=== PATIENT | male | born 2000 | race Two or more races ===

== ENCOUNTER 2023-07-31 17:11 | Emergency (ER) | payer BC, SELFPAY ==
[2023-07-31] VITALS (18 sets, daily range): BP systolic 61–122; BP diastolic 37–77; PULSE 46–87; RESP 18; TEMP 37.4; O2SAT 96–100; BMI 20.9
--- NOTE | 2023-07-31 20:28 | CT_ITS ---
Patient: RALF LOMELI Facility:?[facility] Patient ID:?[id number] Site Patient ID:?[id number]. Site :?[id number] Study:?CT-Head W/O-07/31/2023 10:12:31 PM Ordering Physician:DAVIDE Final Report: INDICATION: Worsening headaches. TECHNIQUE: Non-contrast CT of the head is submitted. No comparisons. FINDINGS: The ventricles, sulci and gyri are of normal size, shape and contour. Midline structures are centrally located. No convincing evidence of intra- or extra- axial fluid collections. IMPRESSION: 1. No radiographic evidence of acute intracranial abnormalities. Please note that all CT scans at this facility use dose modulation, iterative reconstruction, and/or weight-based dosing when appropriate to reduce radiation dose to as low as reasonably achievable. Dictated by Sp Simon MD @ 07/31/2023 10:24:09 PM Signed by:?Sp Simon MD @07/31/2023 10:24:09 PM (Electronic Signature)
[2023-07-31] MEDS: LACTATED RINGERS 1000 ML 1,000 ML IV (21:05)
[2023-07-31] MEDS: METOCLOPRAMIDE HCL 5 MG/ML INJ 10 MG IVP (21:14)
[2023-07-31] MEDS: diphenhydrAMINE 50 MG/ML inj 25 MG IVP (21:14)
--- NOTE | 2023-07-31 21:22 | ED.HA ---
HPI - Headache General Date Seen: 07/31/23 Chief Complaint: Headache/Migraine Stated Complaint: headache Time Seen by Provider: 07/31/23 20:03 Source: patient Mode of arrival: ambulatory Limitations: no limitations History of Present Illness HPI Narrative: Patient is a 22-year-old male presenting to the emergency department for a headache. States the headache started last night and he woke up was feeling worse today. States it hurts worse when he tilts his head side to side and back and forth. Says he feels a little bit off today compared to normal. Does remember hitting his head in the shower a few days ago but no other head injuries. States the headache is on the top of his head it feels like a throbbing sensation. States his headaches usually go away pretty quick but this does not feel like previous headaches. Denies fevers, chills, weakness, numbness, chest pain, shortness of breath, abdominal pain, diarrhea, vision changes. No other concerns noted at this time. Related Data Allergies Allergy/AdvReac Type Severity Reaction Status Date / Time No Known Drug Allergies Allergy Verified 07/31/23 18:33 Review of Systems Status of ROS: Reports: 10 or more systems reviewed and unremarkable except as noted in History and below [facility] Social History Do you use any of these nicotine containing products: Vaping Products Second hand tobacco smoke exposure: Yes How often do you have a drink containing alcohol: never AUDIT-C Alcohol total score: 0 Non-prescribed substance use: denies use Exam Narrative: Exam Narrative: Const: Well-nourished, Well-developed, in mild distress Eyes: PERRL, no conjunctival injection, and symmetrical lids HENT: Atraumatic external nose and ears. Moist mucous membranes. Neck: Symmetric, trachea midline, No thyromegaly. CVS: RRR, No murmurs or gallops. Peripheral pulses 2+ and equal in all extremities RESP: Unlabored respiratory effort. Clear to auscultation bilaterally. GI: Nontender/Nondistended, No rebound or guarding. MSK:Extremities w/o deformity, Normal Active ROM Skin: Warm, Dry. No rashes or lesions. Neuro: Normal Muscle tone, Cranial nerves 2-12 grossly intact, normal [id number], normal [id number], normal gait, normal strength 5/5 upper lower extremities bilaterally, normal sensation upper and lower extremities bilaterally, normal rapid alternating movements. Psych: Awake, Alert, & Oriented x3. Appropriate mood and affect. Const: Vital Signs, click to edit/add: Vital Signs - 24 hr 07/31/23 18:31 07/31/23 19:47 07/31/23 20:00 Temperature 99.3 F Pulse Rate 61 62 Pulse Rate [Right Pulse Oximeter] 87 Respiratory Rate 18 Blood Pressure Blood Pressure [Ri ght Upper Arm] 121/73 Pulse Oximetry 97 98 99 Oxygen Delivery Me thod Room Air 07/31/23 20:01 07/31/23 20:15 07/31/23 20:30 Temperature Pulse Rate 58 L 62 65 Pulse Rate [Right Pulse Oximeter] Respiratory Rate Blood Pressure 111/77 Blood Pressure [Ri ght Upper Arm] Pulse Oximetry 100 99 100 Oxygen Delivery Me thod 07/31/23 20:31 07/31/23 20:45 07/31/23 21:00 Temperature Pulse Rate 57 L 63 52 L Pulse Rate [Right Pulse Oximeter] Respiratory Rate Blood Pressure 122/77 Blood Pressure [Ri ght Upper Arm] Pulse Oximetry 100 100 97 Oxygen Delivery Me thod 07/31/23 21:02 07/31/23 21:07 07/31/23 21:08 Temperature Pulse Rate 46 L 50 L 50 L Pulse Rate [Right Pulse Oximeter] Respiratory Rate Blood Pressure 61/37 L 75/43 L 88/50 L Blood Pressure [Ri ght Upper Arm] Pulse Oximetry 100 98 96 Oxygen Delivery Me thod 07/31/23 21:11 07/31/23 21:14 07/31/23 21:15 Temperature Pulse Rate 56 L 56 L 61 Pulse Rate [Right Pulse Oximeter] Respiratory Rate Blood Pressure 91/62 101/64 Blood Pressure [Ri ght Upper Arm] Pulse Oximetry 99 100 100 Oxygen Delivery Me thod 07/31/23 21:30 07/31/23 21:31 07/31/23 21:45 Temperature Pulse Rate 57 L 57 L 58 L Pulse Rate [Right Pulse Oximeter] Respiratory Rate Blood Pressure 107/69 Blood Pressure [Ri ght Upper Arm] Pulse Oximetry 100 99 100 Oxygen Delivery Me thod Course Vital Signs Vital signs: Initial Vital Signs Temperature 99.3 F 07/31/23 18:31 Temperature Source Temporal Artery Scan 07/31/23 18:31 Pulse Rate 87 07/31/23 18:31 Respiratory Rate 18 07/31/23 18:31 Blood Pressure 121/73 07/31/23 18:31 Blood Pressure Mean 89 07/31/23 18:31 Blood Pressure Position Sitting 07/31/23 18:31 Pulse Oximetry 97 07/31/23 18:31 Oxygen Delivery Method Room Air 07/31/23 18:31 Vital Signs Temperature 99.3 F 07/31/23 18:31 Pulse Rate 87 07/31/23 18:31 Respiratory Rate 18 07/31/23 18:31 Blood Pressure 121/73 07/31/23 18:31 Pulse Oximetry 97 07/31/23 18:31 Oxygen Delivery Method Room Air 07/31/23 18:31 Temperature 99.3 F 07/31/23 18:31 Pulse Rate 58 L 07/31/23 21:45 Respiratory Rate 18 07/31/23 18:31 Blood Pressure 107/69 07/31/23 21:31 Pulse Oximetry 100 07/31/23 21:45 Oxygen Delivery Method Room Air 07/31/23 18:31 Medications Administered Medications: Discontinued Medications Generic Name Dose Route Start Last Admin Trade Name Freq PRN Reason Stop Dose Admin Diphenhydramine HCl 25 mg 07/31/23 20:28 07/31/23 21:14 Diphenhydramine 50 Mg/Ml Inj IVP 07/31/23 20:29 25 mg ONCE ONE Administration Lactated Ringer's 1,000 mls @ 1,000 mls/hr 07/31/23 20:28 07/31/23 21:05 Lactated Ringers 1000 Ml IV 07/31/23 21:27 1,000 mls/hr .Q1H ONE Administration Metoclopramide HCl 10 mg 07/31/23 20:28 07/31/23 21:14 Metoclopramide Hcl 5 Mg/Ml Inj IVP 07/31/23 20:29 10 mg ONCE ONE Administration MDM - Headache MDM Narrative Medical decision making narrative: Patient is a 22-year-old male presenting for headache. Or he did head his head a few days ago but his description is not seem like it was very hard. His description of his headache does not sound like a subarachnoid hemorrhage and I do not believe needs a lumbar puncture. Due to his relatively vague symptoms are will do a CT of his head to rule out any intracranial abnormalities. he also be given a migraine cocktail. A stroke seems very unlikely and he had a completely normal neuro exam CT scan of his head returned showing no concerning abnormalities. He is feeling much better after the migraine cocktail and I believe he is safe for discharge. He is agreeable to this plan Imaging Data CT scan - head: Attestation: I have reviewed the pertinent imaging results. Radiologist's impression: 1. No radiographic evidence of acute intracranial abnormalities. Please note that all CT scans at this facility use dose modulation, iterative reconstruction, and/or weight-based dosing when appropriate to reduce radiation dose to as low as reasonably achievable. Dictated by Sp Simon MD @ 07/31/2023 10:24:09 PM Discharge Plan Discharge Clinical Impression: Headache Qualifiers: Headache type: unspecified Headache chronicity pattern: acute headache Intractability: not intractable Qualified Code(s): R51.9 - Headache, unspecified Patient Disposition: Home, Self-Care Condition: Improved Instructions: Acute Headache (DC) Additional Instructions: Take Tylenol and ibuprofen for pain. Return to emergency department for new or worsening symptoms. Follow Up/Referrals: Provider,Not a Local [Primary Care Provider] - Stand Alone Forms: [employer] Info Instructions
--- NOTE | 2023-07-31 21:29 | ED.NURSE ---
after IV start, pt went to get into wheel chair from bed to go to imaging. pt stated he felt lightheaded, diaphoretic, and like I was going to pass out. helped pt back to bed and connected pt ordered IV fluids and placed cool was rag onto pt forehead. pt stated I feel better
== END 2023-07-31 22:50 | disposition home or self-care (01) ==
PROVIDERS: Emergency Provider Student in an Organized Health Care Education/Training Program
DX: R51.9 Headache, unspecified (principal)
CPT/HCPCS: 70450; 96374; 96375; 99283; J1200; J2765; J7120